=== PATIENT | male | born 2005 | race Caucasian/White ===

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

== ENCOUNTER 2025-04-06 22:30 | Emergency (ER) | payer OTHER, SELFPAY ==
[2025-04-06 22:32] VITALS: BP 179/108; PULSE 90; RESP 27; TEMP 36.7; O2SAT 100
--- NOTE | 2025-04-06 22:48 | ED.GENADUL_ITS ---
Discharge Plan Disposition Patient Disposition: Home Condition: Good Discharge Details Clinical Impression: Laceration of right index finger Primary Care Provider: Nikolas Thakur ED Provider: Nikolas Siegel Home Meds and New Rx's Prescriptions: No Action No Known Home Meds Discharge Instructions Instructions: Laceration Repair With Stitches ED Additional Instructions: Please keep the area clean and dry. Monitor closely for any redness, drainage or discharge. For nonabsorbable sutures, please return in 7 to 10 days to have the wound reassessed and the sutures removed. If you come back to the emergency department here it will be free of charge for the suture removal. For long-term scar cosmesis, please make sure to avoid any sun to the area for the next year. Apply moisturizer or vitamin E to the area twice daily for the next 12 months for the best chance of wound/scar medication. Please take a daily multivitamin as well as this can help in wound healing. If you notice any worsening of your symptoms, or any new symptoms such as vomiting, diarrhea, fever, chills, shortness of breath, chest pain, numbness, weakness, or fainting , please return immediately to the emergency department for reevaluation. Please follow up with your primary care provider as soon as possible for reassessment and reevaluation. As always, it was a pleasure partic ipating in your medical care today. Stand Alone Forms: Work Release Referrals: Nikolas Thakur MD [Primary Care Provider] - Discharge Data Discharge Date/Time-TO BE ENTERED AT DEPARTURE: 04/06/25 23:29 HPI General Date/Time Provider Initiated Documentation: 04/06/25 22:32 . HPI Narrative: 20-year-old male with no significant past medical history whose tetanus was updated within the past 5 years presents today for evaluation of trauma to his right index finger. Patient is right-hand dominant. Patient was at work when his finger got stuck in a conveyor belt. He received a laceration. He came to the ER immediately for assessment after the event. He admits to pain in his finger at the PIP joint. He denies any new numbness or tingling. Pain is made worse with movement. No other complaints at this time. Related Data Home Medications ?Medication ?Instructions ?Recorded ?Confirmed Unknown [No Known Home Meds] 08/26/24 04/06/25 Allergies Allergy/AdvReac Type Severity Reaction Status Date / Time No Known Allergies Allergy Verified 04/06/25 22:36 General Stated Complaint: Orthopedic BRODY: 3 Exam Narrative Exam Narrative: 1.Const: Well-nourished, Well-developed, appearing stated age 2.Eyes: PERRL, no conjunctival injection, and symmetrical lids. 3.ENT: Atraumatic external nose and ears. Moist MM. Neck: Symmetric, trachea midline, No thyromegaly. 4.CVS: +S1/S2, Peripheral pulses 2+ and equal in all extremities. Brisk capillary refill in all extremities. 5.RESP: Unlabored respiratory effort. Clear to auscultation bilaterally. No wheezes rales or rhonchi 6.GI: Soft, Nontender/Nondistended, No hepatosplenomegaly. No guarding or rebound. 7.MSK: Normocephalic patient demonstrates a laceration over the palmar aspect of the index finger between the PIP and DIP joint, minimal active bleeding. Patient is able to demonstrate good flexion and extension of the index finger at both the PIP and DIP joints. Sensation is intact distally. Brisk capillary refill. No rotational deformity. All other fingers for the right and left hand are unremarkable on exam. 8.Skin: Warm, Dry. 2.5 cm laceration over the palmar aspect of the index finger between the PIP and DIP joint. 9.Neuro: nursing student II-XII grossly intact. Sensation grossly intact, no focal neurologic deficits. 10.Psych: (AAO) x3. Appropriate mood and affect Course Vital Signs Vital signs: Vital Signs Temperature 36.7 C 04/06/25 22:32 Pulse 90 04/06/25 22:32 Respiratory Rate 27 H 04/06/25 22:32 Blood Pressure 179/108 H 04/06/25 22:32 Pulse Oximetry 100 04/06/25 22:32 Temperature 36.7 C 04/06/25 22:32 Temperature Source Oral 04/06/25 22:32 Pulse 90 04/06/25 22:32 Respiratory Rate 27 H 04/06/25 22:32 Blood Pressure 179/108 H 04/06/25 22:32 Blood Pressure Position Sitting 04/06/25 22:32 Pulse Oximetry 100 04/06/25 22:32 Oxygen Delivery Method Room Air 04/06/25 22:32 Oxygen Flow Rate 0 04/06/25 22:32 Pain Level 9 04/06/25 22:37 Procedure Laceration Laceration 1: Date of Procedure: 04/06/25 Time of procedure: 23:28 Provider that performed the procedure: Nikolas Aponte Time Out Performed: Yes Patient Consented: Verbally Site: hand Side (If applicable): right Description: irregular Depth: simple, single layer Local anesthetic: Bupivicaine 0.25% Amount of anesthesia used (mL): 6 Pre-repair:: wound explored, irrigated extensively, deep structures intact , extensive debridement and wound margins revised Skin layer closed with: nylon Suture size: 4-0 Number of sutures:: 5 Technique: simple, interrupted Medical Decision Making 20-year-old male with no significant past medical history whose tetanus was updated within the past 5 years presents today for evaluation of trauma to his right index finger. Patient is right-hand dominant. Patient was at work when his finger got stuck in a conveyor belt. He received a laceration. He came to the ER immediately for assessment after the event. He admits to pain in his finger at the PIP joint. He denies any new numbness or tingling. Pain is made worse with movement. No other complaints at this time. Exam demonstrates a 2.5 cm laceration over the palmar aspect of the index finger between the PIP and DIP joint, minimal active bleeding. Pain was severe on arrival, patient was immediately block to help resolve pain. He was noted to be neurovascularly intact. Patient demonstrates good flexion and extension at both PIP and DIP joints. Concern for laceration with contusion noted potential fracture. We will get an x-ray, clean the finger, monitor closely suture and reassess. 11:30 PM X-ray showed no evidence of fracture. Area was cleaned and anesthetized, wound edges needed to be revised secondary to obliterated wound edge skin. Area was subsequently sutured with 5 simple interrupted sutures using nylon 4-0. Patient tolerates this well. Discussed red flags for which to return. Patient was given splint for protection. I have extensively reviewed the treatment plan and discharge instructions with the patient. I have addressed all patient concerns at this time. The patient was made aware of what symptoms to monitor for that would warrant a return to the emergency department. Discussed the plan with the patient, they demonstrate verbal understanding and agreement with our assessment and plan at this time. The documentation in this chart was dictated using [employer] dictation software. Please excuse any dictation errors. FINDINGS: Bones/joints: Normal. Soft tissues: Soft tissue emphysema around the middle phalanx of the index finger IMPRESSION: No acute fracture or dislocation. Thank you for allowing us to participate in the care of your patient. Dictated and Authenticated by: Ash Chen MD 04/07/2025 12:16 AM Eastern Time ([place] & [place]) Quality:SDOH Health Related Social Needs: No Data to Display PFSH All Active Problems (Updated 04/06/25 @ 23:20 by Nikolas Siegel DO) Laceration of right index finger (Acute) Excessive cerumen in both ear canals (Acute) Nicotine dependence (Acute) of parent (Chronic) Mother of lung cancer late 2019 Attention deficit hyperactivity disorder, combined type (Chronic 08/25/13) Routine child health exam (Chronic 11/18/13) Adenoma (Acute 09/13/15) Medical History Ingrown toenail of left foot with infection Behavior problem in pediatric patient (09/21/12) 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) Nutrition consult 11/18 Asthma Acute bronchospasm due to viral infection age 1 -2 yrs Surgical History cyst on left ear removed Family History Brother Bronchospasm Mother , Mother in October 22, 2020 Asthma Cancer Grandparent Essential hypertension Heart disease Hyperlipidemia Social History (Updated 12/20/24 @ 11:30 by Cassi Downs RN) Smoking/Tobacco Use Status: Never Second Hand Exposure: Yes Smoking risk assessment performed?: Yes Alcohol Intake: never Drug use: Never Adopted: No Foster care: No Household members: family Housing: house Communication Needs: Corrective Lenses current occupation: [employer], [employer] Pets and animals: Yes (1 dog) Pets and animals: dog(s) Current gender identity: male Seatbelt use: always Helmet use: Yes Helmet use: always Water heater temp set <120 deg: Yes Fire extinguisher in home: Yes Carbon monox detector in home: Yes Firearms in home: Yes Firearms unloaded and locked: Yes Do you feel safe at home: Yes Do you feel safe in your relationship?: Yes
--- NOTE | 2025-04-06 22:58 | DI.RAD_ITS ---
Exam(s) XR FINGER RT INDEX EXAM: XR FINGER RT INDEX CLINICAL HISTORY: crushed at work at mid finger. TECHNIQUE: 2D digital imaging was performed of the right finger. Three views were obtained. PA/AP, oblique, and lateral views were obtained. COMPARISON: No exams were available for comparison FINDINGS: BONES: No acute fracture is present. No bony destructive lesion is seen. JOINTS: No dislocation present. SOFT TISSUE: There is soft tissue swelling of the right index finger. No radiopaque foreign bodies a re seen. IMPRESSION: 1. No evidence of acute fracture or dislocation. 2. The preliminary [facility] report was reviewed. DATA REPOSITORY: RADIATION DOSE DELIVERED:
--- NOTE | 2025-04-07 00:17 | DI.[facility]_ITS ---
PROCEDURE INFORMATION: Exam: XR Right Finger(s) Exam date and time: 04/06/2025 10:56 PM Age: 20 years old Clinical indication: Injury or trauma; Other: Crushed in machine; Work related; Crushing; Right; Index finger; Injury date: 04/06/25; Crushed at work at mid finger TECHNIQUE: Imaging protocol: Radiologic exam of the right fingers. Views: Minimum 2 views. COMPARISON: No relevant prior studies available. FINDINGS: Bones/joints: Normal. Soft tissues: Soft tissue emphysema around the middle phalanx of the index finger IMPRESSION: No acute fracture or dislocation. Dictated and Authenticated by: Ash Chen MD. Orderin Robbin Connor MD
== END 2025-04-06 23:29 | disposition home or self-care (01) ==
PROVIDERS: Emergency Provider Student in an Organized Health Care Education/Training Program; PCP Pediatrics
DX: S61.210A Laceration without foreign body of right index finger without damage to nail, initial encounter (principal); W31.89XA Contact with other specified machinery, initial encounter; Y93.89 Activity, other specified; Y92.69 Other specified industrial and construction area as the place of occurrence of the external cause; Y99.0 Civilian activity done for income or pay
CPT/HCPCS: 12001; 99283; 73140; J0665

== ENCOUNTER 2025-04-14 23:12 | Emergency (ER) | payer BC, SELFPAY ==
[2025-04-14 23:15] VITALS: BP 148/89; PULSE 59; RESP 18; TEMP 36.7; O2SAT 98
[2025-04-14 23:17] VITALS: RESP 18
--- NOTE | 2025-04-14 23:43 | W.ED.GENAD ---
Discharge Plan Disposition Patient Disposition: Home Condition: Stable Discharge Details Clinical Impression: Encounter for removal of sutures, Laceration of right index finger Primary Care Provider: Nikolas Thakur ED Provider: Latosha Daniels Home Meds and New Rx's Prescriptions: No Action No Known Home Meds Discharge Instructions Additional Instructions: Wound appears to be healing appropriately, 5 stitches were removed. Continue to clean with soap and water. Keep covered with working. Apply antibiotic ointment 2-3 times a day to continue to help with healing. HPI General Date/Time Provider Initiated Documentation: 04/14/25 23:30. Limitations to Documentation: no limitations. Information obtained by: patient and old records reviewed. HPI Narrative: 20-year-old gentleman without significant past medical history presents for suture removal after being seen for a right index finger laceration repair. Denies any complaints swelling or drainage. Reports that he feels like the wound is healing nicely and his range of motion in his finger is normal Related Data Home Medications ?Medication ?Instructions ?Recorded ?Confirmed Unknown [No Known Home Meds] 08/26/24 04/14/25 Allergies Allergy/AdvReac Type Severity Reaction Status Date / Time No Known Allergies Allergy Verified 04/14/25 23:18 General Stated Complaint: GenMedical BRODY: 5 Exam Narrative Exam Narrative: Review of Systems: All systems reviewed & are unremarkable except as noted in HPI and below Well-developed, no acute distress NCAT Right index finger with laceration noted. Wound with [address] as well as Dermabond. No signs of infection. Wound approximated well. Course Vital Signs Vital signs: Vital Signs Temperature 36.7 C 04/14/25 23:15 Pulse 59 L 04/14/25 23:15 Respiratory Rate 18 04/14/25 23:15 Blood Pressure 148/89 H 04/14/25 23:15 Pulse Oximetry 98 04/14/25 23:15 Temperature 36.7 C 04/14/25 23:15 Temperature Source Oral 04/14/25 23:15 Pulse 59 L 04/14/25 23:15 Respiratory Rate 18 04/14/25 23:17 Respiratory Effort Normal 04/14/25 23:17 Respiratory Depth Normal 04/14/25 23:17 Respiratory Pattern Normal 04/14/25 23:17 Blood Pressure 148/89 H 04/14/25 23:15 Blood Pressure Position Sitting 04/14/25 23:15 Pulse Oximetry 98 04/14/25 23:15 Oxygen Delivery Method Room Air 04/14/25 23:15 Oxygen Flow Rate 0 04/14/25 23:15 Medical Decision Making Evaluation for suture removal. Wound appears to be healing appropriately and sutures were removed without complication. Continued wound care guidance provided to patient. Follow-up as needed. 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) Nutrition consult 11/18 Asthma Acute bronchospasm due to viral infection age 1 -2 yrs Surgical History cyst on left ear removed Family History Brother Bronchospasm Mother , Mother in October 22, 2020 Asthma Cancer Grandparent Essential hypertension Heart disease Hyperlipidemia Social History (Updated 12/20/24 @ 11:30 by Cassi Downs RN) Smoking/Tobacco Use Status: Never Second Hand Exposure: Yes Smoking risk assessment performed?: Yes Alcohol Intake: never Drug use: Never Adopted: No Foster care: No Household members: family Housing: house Communication Needs: Corrective Lenses current occupation: [employer], [employer] Pets and animals: Yes (1 dog) Pets and animals: dog(s) Current gender identity: male Seatbelt use: always Helmet use: Yes Helmet use: always Water heater temp set <120 deg: Yes Fire extinguisher in home: Yes Carbon monox detector in home: Yes Firearms in home: Yes Firearms unloaded and locked: Yes Do you feel safe at home: Yes Do you feel safe in your relationship?: Yes
--- NOTE | 2025-04-14 23:44 | NUR.NOTE ---
Nursing Note:RN removed 5 stitches, no signs of infection noted at this time. Bactiratin and bandaid applied.
== END 2025-04-14 23:45 | disposition home or self-care (01) ==
PROVIDERS: Emergency Provider Emergency Medicine; PCP Pediatrics
DX: Z48.02 Encounter for removal of sutures (principal)